=== PATIENT | female | born 1955 | race Two or more races ===

== ENCOUNTER 2017-01-28 08:51 | Emergency (ER) | payer OTHER ==
[~2017-01-28] VITALS: Ht 157.5 cm; Wt 78.9 kg
[2017-01-28 09:46] VITALS: BP 147/72
[2017-01-28] MEDS ORDERED: LORazepam 2MG/ML-1ML VIAL IM ONE (10:00)
== END 2017-01-28 10:50 | disposition home or self-care (01) ==
LOC: ER 08:51
DX: F41.9 Anxiety disorder, unspecified (principal); F32.9 Major depressive disorder, single episode, unspecified
CPT/HCPCS: 93005; 96372; 99284; J2060

== ENCOUNTER 2018-06-25 19:55 | Emergency (ER) | payer MEDICARE, OTHER ==
[~2018-06-25] VITALS: Ht 157.5 cm; Wt 81.6 kg
[2018-06-25 21:12] LABS: Basophils # (auto) 0.1 uL; Basophils % (auto) 0.7 % (0.0-2.0); Eosinophils # (auto) 0.2 uL; Eosinophils % (auto) 2.2 % (0.0-7.0); Hematocrit 35.3 % (36.0-46.0); Hemoglobin 11.8 g/dL (12.2-16.2); Lymphocytes # (auto) 2.3 uL; Lymphocytes % (auto) 22.2 % (10.0-50.0); Mean Corpuscular Hemoglobin 29.8 pg (28.0-32.0); Mean Corpuscular Hgb Conc. 33.6 g/dL (32.0-36.0); Mean Corpuscular Volume 88.7 fL (80.0-100.0); Monocytes # (auto) 0.7 uL; Monocytes % (auto) 6.4 % (0.0-12.0); Neutrophils # (auto) 7.2 uL; Neutrophils % (auto) 68.5 % (37.0-80.0); Platelet Count (auto) 364 10^3/uL (140-450); Red Blood Cells 3.98 10^6/uL (4.0-5.20); Red Cell Distribution Width 13.9 % (11.8-14.3); White Blood Cell 10.5 10^3/uL (4.4-10.8)
[2018-06-25 21:21] LABS: Albumin 3.2 g/dL (3.4-5.0); BUN/Creatinine Ratio 19.8; Calcium 8.1 mg/dL (8.5-10.1); Potassium 3.8 mmol/L (3.5-5.1)
[2018-06-25 21:23] LABS: Bilirubin, Total 0.2 mg/dL (0.2-1.0)
[2018-06-25 21:31] LABS: Urine Bacteria NONE SEEN /hpf (None Seen); Urine Blood Negative /uL (Negative); Urine Specific Gravity 1.004 (1.001-1.035); Urine WBC 1 /hpf (0 - 5)
[2018-06-25] MEDS ORDERED: ONDANSETRON HCL 4 MG/2 ML VIAL IV ONE (23:45)
[2018-06-25] MEDS ORDERED: MORPHINE SULFATE 4 MG/ML SYR/VIAL IV ONE (23:45)
[2018-06-26 01:08] VITALS: BP 117/62
[2018-06-26 02:30] LABS: Alcohol, Urine < 3.0 mg/dL (0-5); Amphetamine Screen, Urine NEGATIVE (NEGATIVE); Barbiturate Scree,Urine NEGATIVE (NEGATIVE); Benzodiazephine Screen, Urine NEGATIVE (NEGATIVE); Cannabinoid Screen, Urine NEGATIVE (NEGATIVE); Cocaine Screen, Urine NEGATIVE (NEGATIVE); Opiate Scree,Urine NEGATIVE (NEGATIVE); Phencyclidine Screen, Urine NEGATIVE (NEGATIVE)
== END 2018-06-26 02:39 | disposition home or self-care (01) ==
LOC: ER 19:58
DX: M54.16 Radiculopathy, lumbar region (principal); M48.061 Spinal stenosis, lumbar region without neurogenic claudication
CPT/HCPCS: 36415; 72131; 80053; 80307; 81001; 85025; 96374; 96375; 99284; J2270; J2405

== ENCOUNTER 2023-08-04 15:33 | Inpatient (IN) | payer BC, MEDICAID ==
[~2023-08-04] VITALS: Ht 160 cm; Wt 75.9 kg
[~2023-08-04 15:33] MED LIST: AML5T PO; APIX5TAB PO; ATE50T PO
[2023-08-04 16:57] VITALS: PULSE 125; RESP 18; O2SAT 97
[2023-08-04 17:10] LABS: Basophils # (auto) 0.1 10 ^3/uL (0-0.2); Basophils % (auto) 0.8 % (0.0-2.0); Eosinophils # (auto) 0.1 10 ^3/uL (0-0.8); Eosinophils % (auto) 1.3 % (0.0-7.0); Hematocrit 33.8 % (36.0-46.0); Hemoglobin 11.3 g/dL (12.2-16.2); Lymphocytes # (auto) 1.8 10 ^3/uL (0.4-5.4); Lymphocytes % (auto) 16.4 % (10.0-50.0); Mean Corpuscular Hemoglobin 27.4 pg (28.0-32.0); Mean Corpuscular Hgb Conc. 33.3 g/dL (32.0-36.0); Mean Corpuscular Volume 82.3 fL (80.0-100.0); Monocytes # (auto) 0.6 10 ^3/uL (0-1.3); Neutrophils # (auto) 8.6 10 ^3/uL (1.6-8.6); Neutrophils % (auto) 76.5 % (37.0-80.0); Nucleated Red Blood Cells % 0.1 %; Red Blood Cells 4.11 10^6/uL (4.0-5.20); Red Cell Distribution Width 14.4 % (11.8-14.3); White Blood Cell 11.2 10^3/uL (4.4-10.8)
[2023-08-04 17:26] LABS: Urine Bacteria None Seen /hpf (None Seen)
[2023-08-04 17:28] LABS: Alanine Aminotransferase 13 U/L (7-40); Albumin 4.4 g/dL (3.2-4.8); Alkaline Phosphatase 91 U/L (46-116); Anion Gap 8 (5-15); Aspartate Aminotransferase 12 U/L (13-40); BUN/Creatinine Ratio 12.4 (10.0-20.0); Bilirubin, Total 0.5 mg/dL (0.2-1.0); Blood Urea Nitrogen 13 mg/dL (9-23); Calcium 9.8 mg/dL (8.5-10.1); Carbon Dioxide 24 mmol/L (20-30); Chloride 105 mmol/L (98-107); Glucose 109 mg/dL (74-106); Potassium 3.6 mmol/L (3.5-5.1); Sodium 137 mmol/L (136-145)
[2023-08-04 17:29] LABS: Total Protein 7.3 g/dL (5.7-8.2)
[2023-08-04 17:48] LABS: Urine Blood Negative /uL (Negative); Urine Clarity Clear (Clear); Urine Color Light-Yellow (Yellow); Urine Hyaline Cast FEW /lpf (0 - 2); Urine Protein, UAD TRACE (Negative); Urine Specific Gravity 1.011 (1.001-1.035); Urine Urobilinogen Normal (Negative); Urine WBC 3 /hpf (0 - 5); Urine pH 6.5 (5.0-9.0)
[2023-08-04 19:29] VITALS: PULSE 125; RESP 16; O2SAT 97
[2023-08-04] MEDS: METOPROLOL TARTRATE 1MG/1ML-5ML VIAL IV ONE ×2 (20:50→20:52)
[2023-08-04] MEDS: dilTIAZem 25 MG/5 ML VIAL IV ONE (22:24)
[2023-08-04] MEDS ORDERED: ONDANSETRON HCL 4 MG/2 ML VIAL IV PRN (22:30)
[2023-08-04] MEDS ORDERED: dilTIAZem 25 MG/5 ML VIAL IV ONE (22:30)
[2023-08-04] MEDS ORDERED: NITROGLYCERIN 0.4 MG SL TAB SL PRN (22:30)
[2023-08-04] MEDS ORDERED: MORPHINE SULFATE INJ 2 MG/ml SYRG IV PRN ×2 (22:30)
[2023-08-04] MEDS ORDERED: DEXTROSE (50%) 50ML SYRG IV PRN (22:30)
[2023-08-04] MEDS: FUROSEMIDE 20 MG/2 ML VIAL IV SCH (23:00)
[2023-08-05] MEDS ORDERED: MIRT-94 PO (01:35)
[2023-08-05] MEDS: HYDROcodone-ACET 5/325MG TAB PO PRN (03:42)
[2023-08-05 05:54] LABS: Basophils # (auto) 0.1 10 ^3/uL (0-0.2); Basophils % (auto) 0.5 % (0.0-2.0); Eosinophils # (auto) 0.1 10 ^3/uL (0-0.8); Hematocrit 34.6 % (36.0-46.0); Hemoglobin 11.5 g/dL (12.2-16.2); Lymphocytes # (auto) 1.9 10 ^3/uL (0.4-5.4); Lymphocytes % (auto) 17.4 % (10.0-50.0); Mean Corpuscular Hemoglobin 27.8 pg (28.0-32.0); Mean Corpuscular Hgb Conc. 33.1 g/dL (32.0-36.0); Mean Corpuscular Volume 84.1 fL (80.0-100.0); Monocytes # (auto) 0.5 10 ^3/uL (0-1.3); Monocytes % (auto) 4.6 % (0.0-12.0); Neutrophils # (auto) 8.2 10 ^3/uL (1.6-8.6); Neutrophils % (auto) 76.5 % (37.0-80.0); Red Blood Cells 4.11 10^6/uL (4.0-5.20); Red Cell Distribution Width 14.4 % (11.8-14.3); White Blood Cell 10.7 10^3/uL (4.4-10.8)
[2023-08-05 06:08] LABS: Chloride 104 mmol/L (98-107); Potassium 3.5 mmol/L (3.5-5.1); Sodium 141 mmol/L (136-145)
[2023-08-05 06:09] LABS: Anion Gap 12 (5-15); Carbon Dioxide 25 mmol/L (20-30)
[2023-08-05 06:10] LABS: Calcium 9.8 mg/dL (8.7-10.4)
[2023-08-05 06:15] LABS: BUN/Creatinine Ratio 12.4 (10.0-20.0); Blood Urea Nitrogen 15 mg/dL (9-23); Glucose 157 mg/dL (74-106)
[2023-08-05] MEDS: InsuLIN REG 1unit/0.01ml Soln (100units/ml) SC SCH (07:00)
[2023-08-05] MEDS: ACCU-CHEK COMFORT CURVE STRIP VI SCH (07:12)
[2023-08-05] MEDS ORDERED: METOPROLOL TARTRATE 25 MG TAB PO ONE (10:00)
[2023-08-05] MEDS ORDERED: FUROSEMIDE 20 MG/2 ML VIAL IV SCH (10:00)
[2023-08-05] MEDS: METOPROLOL TARTRATE 25 MG TAB PO SCH (10:10)
[2023-08-05] MEDS: ENOXAPARIN SOD 100 MG/1 ML SYRINGE SC SCH (10:10)
[2023-08-05 20:00] VITALS: PULSE 125; RESP 16; O2SAT 97
[2023-08-05 22:14] VITALS: BP 152/90; PULSE 114; RESP 20; TEMP 97.9; O2SAT 99
[2023-08-05] MEDS: MIRTAZAPINE 30 MG TAB PO SCH (22:48)
[2023-08-05] MEDS: PANTOPRAZOLE 40 MG/10 ML VIAL INJ IV ONE (22:55)
[2023-08-05 23:02] VITALS: PULSE 103; RESP 18; O2SAT 97
[2023-08-05 23:03] VITALS: BP 152/90; PULSE 114; TEMP 97.6; O2SAT 99
[2023-08-06] VITALS (12 sets, daily range): BP systolic 140–162; BP diastolic 85–114; PULSE 97–118; RESP 16–20; TEMP 97.4–98.9; O2SAT 90–99
[2023-08-06] MEDS ORDERED: METF-1145 PO (02:55)
[2023-08-06] MEDS ORDERED: LISI40TA16 PO (02:55)
[2023-08-06] MEDS ORDERED: CHOL1TAB22 PO (02:55)
[2023-08-06] MEDS ORDERED: FURO40TA4 PO (02:55)
[2023-08-06] MEDS ORDERED: SENN8.6T83 PO (02:55)
[2023-08-06] MEDS ORDERED: LEV25T PO (02:55)
[2023-08-06 06:57] LABS: Basophils # (auto) 0.1 10 ^3/uL (0-0.2); Basophils % (auto) 0.6 % (0.0-2.0); Eosinophils # (auto) 0.2 10 ^3/uL (0-0.8); Eosinophils % (auto) 2.1 % (0.0-7.0); Hematocrit 33.7 % (36.0-46.0); Hemoglobin 11.4 g/dL (12.2-16.2); Lymphocytes # (auto) 2.3 10 ^3/uL (0.4-5.4); Lymphocytes % (auto) 24.4 % (10.0-50.0); Mean Corpuscular Hemoglobin 28.6 pg (28.0-32.0); Mean Corpuscular Hgb Conc. 33.9 g/dL (32.0-36.0); Mean Corpuscular Volume 84.4 fL (80.0-100.0); Monocytes # (auto) 0.5 10 ^3/uL (0-1.3); Monocytes % (auto) 5.8 % (0.0-12.0); Neutrophils # (auto) 6.3 10 ^3/uL (1.6-8.6); Neutrophils % (auto) 67.1 % (37.0-80.0); Red Blood Cells 3.99 10^6/uL (4.0-5.20); Red Cell Distribution Width 14.5 % (11.8-14.3); White Blood Cell 9.4 10^3/uL (4.4-10.8)
[2023-08-06 07:00] LABS: INR 1.13 (0.9-1.15); Partial Thromboplastin Time 31.2 SEC (24.5-34.5); Prothrombin Time 11.9 sec (9.3-11.8)
[2023-08-06 07:02] LABS: Anion Gap 7 (5-15); Carbon Dioxide 27 mmol/L (20-30); Chloride 104 mmol/L (98-107); Potassium 3.3 mmol/L (3.5-5.1); Sodium 138 mmol/L (136-145)
[2023-08-06 07:03] LABS: Calcium 9.6 mg/dL (8.5-10.1)
[2023-08-06 07:08] LABS: BUN/Creatinine Ratio 13.5 (10.0-20.0); Blood Urea Nitrogen 15 mg/dL (9-23); Glucose 121 mg/dL (74-106)
[2023-08-06] MEDS: PANTOPRAZOLE 40 MG/10 ML VIAL INJ IV SCH (08:33)
[2023-08-06] MEDS: hydrALAZINE HCL 20 MG/ML VL IV PRN (08:34)
[2023-08-06] MEDS ORDERED: FEXO-119 PO (09:37)
[2023-08-06] MEDS ORDERED: MIRT1TAB PO (09:37)
[2023-08-06] MEDS ORDERED: BUPR150T23 PO (09:37)
[2023-08-06] MEDS ORDERED: HYDR-4072 PO (09:37)
[2023-08-06] MEDS ORDERED: SIMV10TA20 PO (09:37)
[2023-08-06] MEDS ORDERED: SERT-160 PO (09:37)
[2023-08-06] MEDS ORDERED: IBUP-1456 PO (09:37)
[2023-08-06] MEDS: LIDOCAINE 2%HCL (LOCAL ANESTH.) INJ 20ML MDV ONE (14:48)
[2023-08-06] MEDS: fentaNYL CITRATE 100 MCG/2 ML VL ONE (15:05)
[2023-08-06] MEDS: HEPARIN SODIUM (PORCINE) 5000 UNITS/ML 1ML VIAL ONE (15:05)
[2023-08-06] MEDS: MIDAZOLAM HCL 2MG/2ML 2ml VIAL (1mg/ml) ONE (15:05)
[2023-08-06] MEDS: ANGIOMAX 250 MG VIAL IV ONE (15:05)
[2023-08-06] MEDS: VERAPAMIL 2.5MG/ML INJ 2ML VIAL IV ONE (15:05)
[2023-08-06] MEDS: SODIUM CHL 0.9% 0 ML ONE (15:06)
[2023-08-06] MEDS: IODIXANOL 320MG/ML 100ML BTL IV ONE (15:18)
[2023-08-06] MEDS: DOCUSATE SOD 100 MG CAP PO PRN (20:44)
[2023-08-07] VITALS (7 sets, daily range): BP systolic 146–160; BP diastolic 97–105; PULSE 79–120; RESP 16–20; TEMP 97.8–98.7; O2SAT 94–99
[2023-08-07] MEDS: ACETAMINOPHEN 325 MG TAB PO PRN (01:39)
[2023-08-07 07:01] LABS: Alanine Aminotransferase 14 U/L (7-40); Alkaline Phosphatase 87 U/L (46-116); Anion Gap 8 (5-15); BUN/Creatinine Ratio 17.6 (10.0-20.0); Blood Urea Nitrogen 19 mg/dL (9-23); Calcium 9.4 mg/dL (8.5-10.1); Carbon Dioxide 24 mmol/L (20-30); Chloride 105 mmol/L (98-107); Glucose 113 mg/dL (74-106); Potassium 3.5 mmol/L (3.5-5.1); Sodium 137 mmol/L (136-145)
[2023-08-07 07:03] LABS: Albumin 4.1 g/dL (3.2-4.8); Aspartate Aminotransferase 13 U/L (13-40); Bilirubin, Total 0.4 mg/dL (0.2-1.0)
[2023-08-07 07:04] LABS: Total Protein 6.8 g/dL (5.7-8.2)
[2023-08-07 07:06] LABS: Basophils # (auto) 0.1 10 ^3/uL (0-0.2); Basophils % (auto) 0.7 % (0.0-2.0); Eosinophils # (auto) 0.2 10 ^3/uL (0-0.8); Hematocrit 31.9 % (36.0-46.0); Hemoglobin 10.8 g/dL (12.2-16.2); Lymphocytes # (auto) 1.9 10 ^3/uL (0.4-5.4); Lymphocytes % (auto) 22.4 % (10.0-50.0); Mean Corpuscular Hemoglobin 28.7 pg (28.0-32.0); Mean Corpuscular Volume 84.5 fL (80.0-100.0); Monocytes # (auto) 0.6 10 ^3/uL (0-1.3); Monocytes % (auto) 6.8 % (0.0-12.0); Neutrophils # (auto) 5.7 10 ^3/uL (1.6-8.6); Neutrophils % (auto) 68.1 % (37.0-80.0); Red Blood Cells 3.77 10^6/uL (4.0-5.20); Red Cell Distribution Width 14.7 % (11.8-14.3); White Blood Cell 8.4 10^3/uL (4.4-10.8)
[2023-08-07 08:35] LABS: Hepatitis B Surface Antigen Negative (Negative)
[2023-08-07 08:56] LABS: Hepatitis C Antibody Negative (Negative)
[2023-08-07] MEDS: EMPAGLIFLOZIN 10 MG TAB PO SCH (09:45)
[2023-08-07] MEDS: SPIRONOLACTONE 25 MG TAB PO SCH (09:45)
[2023-08-07] MEDS ORDERED: MET25T PO (15:38)
[2023-08-07] MEDS ORDERED: SPIR25TA PO (15:38)
[2023-08-07] MEDS ORDERED: EMPA1TAB PO (15:38)
[2023-08-07] MEDS ORDERED: APIX5TAB PO (15:38)
== END 2023-08-07 18:54 | disposition home or self-care (01) | DRG 286 ==
LOC: ER 15:33 → TELE 22:37 → TELE-WESTW 08-05 22:14
PROVIDERS: ADMIT Nurse Practitioner Family; ATTEND Nurse Practitioner Family
PROC: B211YZZ Fluoroscopy of Multiple Coronary Arteries using Other Contrast (ICD-10-PCS; principal; 2023-08-06)
PROC: B215YZZ Fluoroscopy of Left Heart using Other Contrast (ICD-10-PCS; 2023-08-06)
PROC: 4A023N8 Measurement of Cardiac Sampling and Pressure, Bilateral, Percutaneous Approach (ICD-10-PCS; 2023-08-06)
DX: I13.0 Hypertensive heart and chronic kidney disease with heart failure and stage 1 through stage 4 chronic kidney disease, or unspecified chronic kidney disease (principal); I50.43 Acute on chronic combined systolic (congestive) and diastolic (congestive) heart failure; I48.20 Chronic atrial fibrillation, unspecified; I42.9 Cardiomyopathy, unspecified; E03.9 Hypothyroidism, unspecified; E11.22 Type 2 diabetes mellitus with diabetic chronic kidney disease; N18.30 Chronic kidney disease, stage 3 unspecified; E78.5 Hyperlipidemia, unspecified; I27.20 Pulmonary hypertension, unspecified; I08.1 Rheumatic disorders of both mitral and tricuspid valves; F41.9 Anxiety disorder, unspecified; F32.A Depression, unspecified; F17.210 Nicotine dependence, cigarettes, uncomplicated; Z79.01 Long term (current) use of anticoagulants; Z88.0 Allergy status to penicillin; Z79.899 Other long term (current) drug therapy; Z79.2 Long term (current) use of antibiotics
CPT/HCPCS: 36415; 71045; 80048; 80053; 81001; 82962; 83880; 84484; 85025; 85610; 85730; 86803; 87340; 93005; 93306; 93458; 96374; 96375; 99152; C9113; G0378; J1815; J2250; J2405; Q9967

== ENCOUNTER 2023-08-09 04:54 | Inpatient (IN) | payer BC, MEDICAID ==
[~2023-08-09] VITALS: Ht 160 cm; Wt 78.0 kg
[~2023-08-09 04:54] MED LIST changes: -AML5T PO; -ATE50T PO; +BUPR150T23 PO; +CHOL1TAB22 PO; +EMPA1TAB PO; +FEXO-119 PO; +FURO40TA4 PO; +LISI40TA16 PO; +MET25T PO; +METF-1145 PO; +MIRT1TAB PO; +SENN8.6T83 PO; +SERT-160 PO; +SIMV10TA20 PO; +SPIR25TA PO
[2023-08-09 05:22] VITALS: PULSE 109; RESP 24; O2SAT 98
[2023-08-09] MEDS: dilTIAZem 25 MG/5 ML VIAL IV ONE (05:39)
[2023-08-09 05:47] LABS: Basophils # (auto) 0.1 10 ^3/uL (0-0.2); Basophils % (auto) 0.9 % (0.0-2.0); Eosinophils # (auto) 0.2 10 ^3/uL (0-0.8); Hematocrit 33.1 % (36.0-46.0); Hemoglobin 11.2 g/dL (12.2-16.2); Lymphocytes % (auto) 20.7 % (10.0-50.0); Mean Corpuscular Hemoglobin 28.1 pg (28.0-32.0); Mean Corpuscular Hgb Conc. 33.9 g/dL (32.0-36.0); Mean Corpuscular Volume 82.7 fL (80.0-100.0); Monocytes # (auto) 0.5 10 ^3/uL (0-1.3); Monocytes % (auto) 5.2 % (0.0-12.0); Neutrophils % (auto) 71.2 % (37.0-80.0); Nucleated Red Blood Cells % 0.1 %; Red Cell Distribution Width 14.6 % (11.8-14.3); White Blood Cell 9.8 10^3/uL (4.4-10.8)
[2023-08-09 05:59] LABS: INR 1.12 (0.9-1.15); Partial Thromboplastin Time 30.5 SEC (24.5-34.5); Prothrombin Time 11.8 sec (9.3-11.8)
[2023-08-09 06:22] LABS: Alanine Aminotransferase 22 U/L (7-40); Albumin 4.5 g/dL (3.2-4.8); Alkaline Phosphatase 99 U/L (46-116); Anion Gap 9 (5-15); Aspartate Aminotransferase 16 U/L (13-40); BUN/Creatinine Ratio 13.1 (10.0-20.0); Blood Urea Nitrogen 14 mg/dL (9-23); Calcium 9.6 mg/dL (8.5-10.1); Carbon Dioxide 23 mmol/L (20-30); Chloride 100 mmol/L (98-107); Glucose 117 mg/dL (74-106); Potassium 3.4 mmol/L (3.5-5.1)
[2023-08-09 06:23] LABS: Bilirubin, Total 0.5 mg/dL (0.2-1.0); Total Protein 7.5 g/dL (5.7-8.2)
[2023-08-09 06:24] LABS: Sodium 132 mmol/L (136-145)
[2023-08-09 06:40] LABS: Urine Bacteria FEW /hpf (None Seen); Urine Blood Negative /uL (Negative); Urine Clarity Clear (Clear); Urine Color Light-Yellow (Yellow); Urine Protein, UAD 1+ (Negative); Urine Specific Gravity 1.009 (1.001-1.035); Urine Urobilinogen Normal (Negative); Urine WBC 2 /hpf (0 - 5); Urine pH 6.5 (5.0-9.0)
[2023-08-09 07:57] VITALS: PULSE 106; RESP 18; O2SAT 95
[2023-08-09] MEDS: AMIODARONE BOLUS KIT 100 ML IV ONE (09:32)
[2023-08-09] MEDS: AMIODARONE 450mg/250ml AE 250 ML IV SCH ×2 (10:46→19:43)
[2023-08-09] MEDS ORDERED: NITROGLYCERIN 0.4 MG SL TAB SL PRN (12:00)
[2023-08-09] MEDS ORDERED: DEXTROSE (50%) 50ML SYRG IV PRN (12:15)
[2023-08-09] MEDS: SERTRALINE HCL 50 MG TAB PO SCH (13:42)
[2023-08-09] MEDS: ONDANSETRON HCL 4 MG/2 ML VIAL IV PRN (14:31)
[2023-08-09] MEDS: MORPHINE SULFATE INJ 2 MG/ml SYRG IV PRN ×3 (14:32→22:57)
[2023-08-09] MEDS: ACCU-CHEK COMFORT CURVE STRIP VI SCH (17:00)
[2023-08-09] MEDS: InsuLIN REG 1unit/0.01ml Soln (100units/ml) SC SCH (17:56)
[2023-08-09 19:30] VITALS: PULSE 112; RESP 20; O2SAT 98
[2023-08-09] MEDS: METOPROLOL TARTRATE 25 MG TAB PO SCH (22:33)
[2023-08-09] MEDS: APIXABAN 5 MG TAB PO SCH (22:33)
[2023-08-09] MEDS: ATORVASTATIN 20 MG TAB PO SCH (22:34)
[2023-08-10 07:23] VITALS: PULSE 117; RESP 20; O2SAT 94
[2023-08-10] MEDS: CHOLECALCIFEROL (VITD3) 1,000UNIT=25mCg TAB PO SCH (09:41)
[2023-08-10] MEDS: SENNA 8.6 MG TAB PO SCH (09:42)
[2023-08-10] MEDS: FUROSEMIDE 40 MG TAB PO SCH (09:42)
[2023-08-10] MEDS: SPIRONOLACTONE 25 MG TAB PO SCH (09:42)
[2023-08-10] MEDS: EMPAGLIFLOZIN 10 MG TAB PO SCH (09:42)
[2023-08-10] MEDS: AMIODARONE HCL 200 MG TAB PO ONE (14:33)
[2023-08-10] MEDS: METOPROLOL TARTRATE 25 MG TAB PO SCH (19:29)
[2023-08-10 19:35] VITALS: PULSE 127; RESP 22; O2SAT 99
[2023-08-10] MEDS ORDERED: METOPROLOL TARTRATE 25 MG TAB PO SCH (22:00)
[2023-08-10 22:05] VITALS: BP 137/90; PULSE 107; RESP 18; TEMP 98.8; O2SAT 91
[2023-08-10 22:16] VITALS: BP 137/90; PULSE 114; RESP 19; TEMP 98.5; O2SAT 91
[2023-08-10] MEDS: AMIODARONE HCL 200 MG TAB PO SCH (22:17)
[2023-08-10] MEDS ORDERED: HYDR-4072 (23:26)
[2023-08-11] VITALS (8 sets, daily range): BP systolic 110–157; BP diastolic 80–98; PULSE 82–113; RESP 14–20; TEMP 98–99; O2SAT 98–100
[2023-08-11] MEDS: DIGOXIN 0.125 MG TAB PO ONE ×2 (14:49→20:21)
[2023-08-12] VITALS (8 sets, daily range): BP systolic 137–158; BP diastolic 80–97; PULSE 57–88; RESP 16–22; TEMP 97.9–99.1; O2SAT 95–99
[2023-08-12 05:26] LABS: Basophils # (auto) 0.1 10 ^3/uL (0-0.2); Basophils % (auto) 0.5 % (0.0-2.0); Eosinophils # (auto) 0.3 10 ^3/uL (0-0.8); Eosinophils % (auto) 2.9 % (0.0-7.0); Hematocrit 36.9 % (36.0-46.0); Hemoglobin 12.3 g/dL (12.2-16.2); Lymphocytes # (auto) 1.7 10 ^3/uL (0.4-5.4); Lymphocytes % (auto) 15.9 % (10.0-50.0); Mean Corpuscular Hemoglobin 28.1 pg (28.0-32.0); Mean Corpuscular Hgb Conc. 33.2 g/dL (32.0-36.0); Mean Corpuscular Volume 84.5 fL (80.0-100.0); Monocytes # (auto) 0.7 10 ^3/uL (0-1.3); Monocytes % (auto) 6.4 % (0.0-12.0); Neutrophils # (auto) 7.8 10 ^3/uL (1.6-8.6); Neutrophils % (auto) 74.3 % (37.0-80.0); Nucleated Red Blood Cells % 0.1 %; Red Blood Cells 4.37 10^6/uL (4.0-5.20); Red Cell Distribution Width 15.1 % (11.8-14.3); White Blood Cell 10.4 10^3/uL (4.4-10.8)
[2023-08-12 05:38] LABS: Chloride 99 mmol/L (98-107); Potassium 3.8 mmol/L (3.5-5.1); Sodium 131 mmol/L (136-145)
[2023-08-12 05:39] LABS: Anion Gap 7 (5-15); Calcium 9.4 mg/dL (8.7-10.4); Carbon Dioxide 25 mmol/L (20-30)
[2023-08-12 05:44] LABS: BUN/Creatinine Ratio 19.6 (10.0-20.0); Blood Urea Nitrogen 20 mg/dL (9-23); Glucose 104 mg/dL (74-106)
[2023-08-12] MEDS ORDERED: MORPHINE SULFATE INJ 2 MG/ml SYRG IV PRN ×2 (09:00)
[2023-08-12] MEDS: amLODIPine BESYLATE 5 MG TAB PO SCH (10:12)
[2023-08-12] MEDS: DIGOXIN 0.125 MG TAB PO SCH (10:12)
[2023-08-12] MEDS: HYDROcodone-ACET 10/325MG TAB PO PRN (10:20)
[2023-08-12] MEDS ORDERED: cloNIDine HCL 0.1 MG TAB PO PRN (13:30)
[2023-08-13 01:00] VITALS: BP 151/79; PULSE 69; RESP 18; TEMP 97.6; O2SAT 95
[2023-08-13 05:00] VITALS: BP 152/102; PULSE 58; RESP 16; TEMP 97.8; O2SAT 96
[2023-08-13 08:00] VITALS: PULSE 68; RESP 18
[2023-08-13 09:00] VITALS: BP 151/90; PULSE 66; RESP 18; TEMP 97.9; O2SAT 95
[2023-08-13 13:00] VITALS: BP 139/86; PULSE 58; RESP 15; TEMP 98; O2SAT 99
[2023-08-13] MEDS ORDERED: MET25T PO (13:30)
[2023-08-13 14:45] VITALS: BP 139/86; PULSE 58; RESP 15; TEMP 98; O2SAT 99
[2023-08-14 02:06] LABS: Albumin 3.4 g/dL (2.9-4.4); Alpha-1-Globulin 0.4 g/dL (0.0-0.4); Alpha-2-Globulin 0.9 g/dL (0.4-1.0); Gamma Globulin 1.6 g/dL (0.4-1.8); Globulin Total 3.8 g/dL (2.2-3.9); Protein Total Serum 7.2 g/dL (6.0-8.5)
== END 2023-08-13 17:05 | disposition home or self-care (01) | DRG 291 ==
LOC: ER 04:54 → TELE 12:01 → TELE-WESTW 08-10 22:00
PROVIDERS: ADMIT Hospitalist; ATTEND Hospitalist
DX: I11.0 Hypertensive heart disease with heart failure (principal); I50.31 Acute diastolic (congestive) heart failure; E11.9 Type 2 diabetes mellitus without complications; I42.9 Cardiomyopathy, unspecified; E66.9 Obesity, unspecified; E03.9 Hypothyroidism, unspecified; I48.91 Unspecified atrial fibrillation; E78.5 Hyperlipidemia, unspecified; F41.9 Anxiety disorder, unspecified; F32.A Depression, unspecified; I08.1 Rheumatic disorders of both mitral and tricuspid valves; Z82.49 Family history of ischemic heart disease and other diseases of the circulatory system; Z83.3 Family history of diabetes mellitus; Z68.30 Body mass index [BMI] 30.0-30.9, adult; Z88.5 Allergy status to narcotic agent; Z88.2 Allergy status to sulfonamides; Z79.01 Long term (current) use of anticoagulants
CPT/HCPCS: 36415; 71045; 80048; 80053; 81001; 82962; 83880; 84155; 84165; 84484; 85025; 85610; 85730; 87081; 93005; 96365; 96366; 96375; 99291; G0378; J1815; J2405

== ENCOUNTER 2024-08-02 13:46 | Outpatient (CLI) | payer OTHER, MEDICAID ==
[~2024-08-02] VITALS: Ht 160 cm; Wt 68.9 kg
[~2024-08-02 13:46] MED LIST changes: +HYDR-4072
--- NOTE | 2024-08-02 14:59 | DVH ---
XY CHEST TWO VIEWS ROUTINE CLINICAL HISTORY: SOB COMPARISON: None TECHNIQUE: Frontal and lateral view of the chest was obtained FINDINGS: Lines and Tubes: None Lungs: No focal consolidation. Pleura: No effusion. No pneumothorax. Cardiomediastinal contours: Unremarkable Bones: No acute osseous abnormality. IMPRESSION: No acute cardiopulmonary disease.
[2024-08-02] MEDS ORDERED: ADENOSINE 90 MG/30 ML INJ IV ONE (15:04)
[2024-08-02] MEDS ORDERED: ADENOSINE 58 MG in GIVE UN-DILUTED 0 ML IV ONE (15:45)
== END 2024-08-02 17:00 | disposition home or self-care (01) ==
LOC: Rad HDHVI 13:46
PROVIDERS: ATTEND Internal Medicine Cardiovascular Disease
DX: I49.3 Ventricular premature depolarization (principal); I48.0 Paroxysmal atrial fibrillation; R06.02 Shortness of breath; R94.31 Abnormal electrocardiogram [ECG] [EKG]; I11.0 Hypertensive heart disease with heart failure; I50.23 Acute on chronic systolic (congestive) heart failure; E11.9 Type 2 diabetes mellitus without complications; E78.00 Pure hypercholesterolemia, unspecified; Z88.0 Allergy status to penicillin
CPT/HCPCS: 71046; 78452; 93017; A9500; J0153

== ENCOUNTER → 2024-08-24 | Outpatient (CLI) | payer OTHER, MEDICAID | END | disposition home or self-care (01) | LOC: Rad HDHVI 14:50 | PROVIDERS: ATTEND Internal Medicine Cardiovascular Disease | DX: I08.8 Other rheumatic multiple valve diseases (principal); I50.23 Acute on chronic systolic (congestive) heart failure | CPT/HCPCS: 93306 ==